=== PATIENT | male | born 1965 | race Caucasian/White ===

== ENCOUNTER 2016-09-08 12:13 | Emergency (ER) | payer MEDICAID ==
--- NOTE | 2016-09-08 12:39 | ER Document Report ---
ED Medical Screen (RME) - General Stated Complaint: WEAKNESS/BODY ACHES Notes: 51 yo male with hx/o laryngeal Cancer, in remission since Novem. c/o weakness , chills, choryza x 1 day. + cough, no n/v/d. lungs CTA, Sat 98% TRAVEL OUTSIDE OF THE [place] IN LAST 30 DAYS: No - Related Data Allergies/Adverse Reactions: codeine Allergy (Verified 02/17/16 16:52) Past Medical History - Immunizations Hx Diphtheria, Pertussis, Tetanus Vaccination: - unk Physical Exam - Vital signs Vitals: Temp Pulse Resp BP Pulse Ox 99.4 F 83 16 114/65 98 09/08/16 12:31 09/08/16 12:31 09/08/16 12:31 09/08/16 12:31 09/08/16 12:31 Course - Vital Signs Vital signs: Temp Pulse Resp BP Pulse Ox 99.4 F 83 16 114/65 98 09/08/16 12:31 09/08/16 12:31 09/08/16 12:31 09/08/16 12:31 09/08/16 12:31
[2016-09-08 13:02] LABS: HEMATOCRIT 41.4 % (37.9-51.0); HEMOGLOBIN 14.5 g/dL (13.5-17.0); HGB HCT DIFFERENCE 2.1; MEAN CORPUSCULAR HEMOGLOBIN 34.1 pg (27.0-33.4); MEAN CORPUSCULAR VOLUME 97 fl (80-97); RED BLOOD COUNT 4.26 10^6/uL (4.35-5.55); RED CELL DISTRIBUTION WIDTH 12.2 % (11.5-14.0); WHITE BLOOD COUNT 11.6 10^3/uL (4.0-10.5)
[2016-09-08 13:21] LABS: BAND NEUTROPHILS % (MANUAL) 1 % (3-5); BASOPHILS % (MANUAL) 0 % (0-2); EOSINOPHILS % (MANUAL) 0 % (0-6); LYMPHOCYTES % (MANUAL) 1 % (13-45); TOTAL CELLS COUNTED 100
[2016-09-08 13:22] LABS: RBC MORPHOLOGY COMMENT NORMO-CYTIC/CHROMIC; TOXIC GRANULATION SLIGHT; TOXIC VACUOLATION PRESENT
[2016-09-08 14:16] LABS: ALANINE AMINOTRANSFERASE 46 U/L (21-72); ALBUMIN 4.5 g/dL (3.5-5.0); ALKALINE PHOSPHATASE 77 U/L (38-126); ANION GAP 9 (5-19); ASPARTATE AMINO TRANSFERASE 39 U/L (17-59); BILIRUBIN,TOTAL 1.1 mg/dL (0.2-1.3); BLOOD UREA NITROGEN 15 mg/dL (7-20); CALCIUM 10.2 mg/dL (8.4-10.2); CARBON DIOXIDE 28 mmol/L (22-30); CHLORIDE 99 mmol/L (98-107); CREATININE RESULT 0.86 mg/dL (0.52-1.25); GLUCOSE 99 mg/dL (75-110); POTASSIUM 4.4 mmol/L (3.6-5.0); SODIUM 136.1 mmol/L (137-145); TOTAL PROTEIN 7.1 g/dL (6.3-8.2)
--- NOTE | 2016-09-08 14:39 | ER Document Report ---
ED Respiratory Problem - General Chief Complaint: Weakness Stated Complaint: WEAKNESS/BODY ACHES Time seen by provider: 14:34 Mode of Arrival: Ambulatory Information source: Patient Notes: 51-year-old male presents to ED for cough and fever that started yesterday. Patient denies any nausea vomiting or diarrhea. Patient has a history of laryngeal cancer which has been in remission since May he did have biopsies with 35 radiation treatments and 3 chemotherapy treatments which were completed in May and has been in remission since May. He states he did have a CT of the chest on Tuesday that showed some nodules on his lung but they were going to reevaluate those in 4 months. This patient does continue to smoke a half-pack a day drink daily and smoke pot. TRAVEL OUTSIDE OF THE [place] IN LAST 30 DAYS: No - HPI Patient complains to provider of: Cough Onset: Yesterday Duration: Continuous Initiating Event: URI Quality of pain: Achy Severity: Moderate Pain Level: 3 Context: Smoker, Other - History of laryngeal cancer with nodules in the lungs continues to smoke drink and smoked pot Short of Breath: Mild Cough: Nonproductive Sputum amount: None Associated symptoms: Chills, Cough, Fever Similar symptoms previously: Yes Recently seen / treated by doctor: Yes - Related Data Allergies/Adverse Reactions: codeine Allergy (Verified 09/08/16 12:39) Past Medical History - General Information source: Patient - Social History Smoking Status: Current Every Day Smoker Cigarette use (# per day): Yes - half a pack a day Chew tobacco use (# tins/day): No Smoking Education Provided: Yes - about 2 minutes Frequency of alcohol use: Heavy - Daily Drug Abuse: Marijuana Occupation: [employer] Lives with: Family Family History: CAD, CVA, DM, Hyperlipidemia, Hypertension, Malignancy, Thyroid Disfunction Patient has suicidal ideation: No Patient has homicidal ideation: No - Past Medical History Cardiac Medical History: Reports: None Pulmonary Medical History: Reports: None EENT Medical History: Reports: None Neurological Medical History: Reports: None Endocrine Medical History: Reports: None Renal/ Medical History: Reports: None Malignancy Medical History: Reports Other - Laryngeal cancer GI Medical History: Reports: None Musculoskeltal Medical History: Reports None Skin Medical History: Reports None Psychiatric Medical History: Reports: None Traumatic Medical History: Reports: None Infectious Medical History: Reports: None Past Surgical History: Reports: Hx Oral Surgery - [place] teeth, Other - Throat biopsy - Immunizations Hx Diphtheria, Pertussis, Tetanus Vaccination: - unk Review of Systems - Review of Systems Constitutional: Fever, Recent illness EENT: Nose discharge Cardiovascular: No symptoms reported Respiratory: Cough Gastrointestinal: No symptoms reported Genitourinary: No symptoms reported Male Genitourinary: No symptoms reported Musculoskeletal: No symptoms reported Skin: No symptoms reported Hematologic/Lymphatic: No symptoms reported Neurological/Psychological: No symptoms reported Physical Exam - Vital signs Vitals: Temp Pulse Resp BP Pulse Ox 99.4 F 83 16 114/65 98 09/08/16 12:31 09/08/16 12:31 09/08/16 12:31 09/08/16 12:31 09/08/16 12:31 Interpretation: Normal - General General appearance: Appears well, Alert - HEENT Head: Normocephalic, Atraumatic Eyes: Normal Pupils: PERRL Ears: Normal External canal: Normal Tympanic membrane: Normal Nasal: Purulent discharge, Swelling Pharynx: Normal Neck: Normal - Respiratory Respiratory status: No respiratory distress Chest status: Nontender Breath sounds: Normal Chest palpation: Normal - Cardiovascular Rhythm: Regular Heart sounds: Normal auscultation Murmur: No - Abdominal Inspection: Normal Distension: No distension Bowel sounds: Normal Tenderness: Nontender Organomegaly: No organomegaly - Back Back: Normal, Nontender - Extremities General upper extremity: Normal inspection, Nontender, Normal color, Normal ROM , Normal temperature General lower extremity: Normal inspection, Nontender, Normal color, Normal ROM , Normal temperature, Normal weight bearing. No: Rob's sign - Neurological Neuro grossly intact: Yes Cognition: Normal Orientation: AAOx4 [place] Coma Scale Eye Opening: Spontaneous [place] Coma Scale Verbal: Oriented [place] Coma Scale Motor: Obeys Commands [place]arte Coma Scale Total: 15 Speech: Normal Motor strength normal: LUE, RUE, LLE, RLE Sensory: Normal - Psychological Associated symptoms: Normal affect, Normal mood - Skin Skin Temperature: Warm Skin Moisture: Dry Skin Color: Normal Course - Re-evaluation Re-evalutation: 09/08/16 15:47 Discussed x-ray with patient and written report given to patient to follow-up with his primary doctor. Patient has a developing pneumonia we'll treat with azithromycin. - Vital Signs Vital signs: Temp Pulse Resp BP Pulse Ox 97.9 F 64 20 134/73 H 97 03/08/17 16:26 09/08/16 16:26 09/08/16 16:26 09/08/16 16:26 09/08/16 16:26 - Laboratory Result Diagrams: 09/08/16 12:45 09/08/16 12:45 Laboratory results interpreted by me: 09/08/16 09/08/16 12:45 12:45 WBC 11.6 H RBC 4.26 L MCH 34.1 H Plt Count 114 L Seg Neuts % (Manual) 89 H Band Neutrophils % 1 L Lymphocytes % (Manual) 1 L Abs Neuts (Manual) 10.4 H Sodium 136.1 L - Diagnostic Test Radiology reviewed: Image reviewed, Reports reviewed Discharge - Discharge Clinical Impression: Right upper lobe pneumonia Qualifiers: Pneumonia type: due to unspecified organism Qualified Code(s): J18.1 - Lobar pneumonia, unspecified organism Condition: Stable Disposition: HOME, SELF-CARE Additional Instructions: PNEUMONIA: Your examination indicates that you have pneumonia. This is an infection of the lung tissue, usually caused by bacteria or a virus. Symptoms include cough, fever, shaking chills, chest pain, shortness of breath, and coughing up bloody sputum. Treatment for bacterial pneumonia includes rest, antibiotics for 10 to 14 days, increasing your clear liquid intake, a cool mist humidifier at your bedside, and fever medication. Often, a repeat chest X-ray is performed in a few weeks--even if you feel better--to ascertain whether the infection has completely resolved and no underlying lung problem is present. You should call the physician if you develop persistent vomiting, high fever that does not respond to fever medication, increasing shortness of breath , confusion, or lethargy. Also, failure to improve within two to three days is an indication for re-examination. AZITHROMYCIN: Azithromycin (Zithromax) is a broad spectrum antibiotic in the same class as erythromycin. It can treat a variety of bacterial infections, but is most frequently used for respiratory infections. Azithromycin is extremely long-lasting. It accumulates in body tissues and continues to kill bacteria for many days. In order to improve absorption, Azithromycin should be taken at least one hour before or two hours after a meal. It does not have the same strong tendency to upset the stomach as erythromycin and is usually very well tolerated. Patients who have had a rash or other true allergic reactions to erythromycin should not take this medication. Call if you develop gastrointestinal distress, severe diarrhea, rash, hives, itching, or shortness of breath. FOLLOW-UP CARE: If you have been referred to a physician for follow-up care, call the physician s office for an appointment as you were instructed or within the next two days. If you experience worsening or a significant change in your symptoms, notify the physician immediately or return to the Emergency Department at any time for re-evaluation. Prescriptions: Azithromycin [Zithromax 250 mg Tablet] 250 mg PO ASDIR PRN #6 tablet PRN Reason: Forms: Smoking Cessation Education, Return to Work Referrals: JORGE DE LUNA MD [Primary Care Provider] - Follow up as needed
[2016-09-08] MEDS ORDERED: AZITHROMYCIN 250 MG TABLET PO ONE (15:50)
[2016-09-08 16:27] VITALS: BP 134/73
== END 2016-09-08 16:26 | disposition home or self-care (01) ==
LOC: ER 12:13
DX: J18.1 Lobar pneumonia, unspecified organism (principal); R53.1 Weakness; R52 Pain, unspecified; R05 Cough; R50.9 Fever, unspecified; F17.210 Nicotine dependence, cigarettes, uncomplicated
CPT/HCPCS: 99285; 36415; 85025; 80053; 87804; 71020; Q0144

== ENCOUNTER → 2016-10-28 | Outpatient (CLI) | payer MEDICAID | LOC: OD 12:33 | PROVIDERS: ATTEND Nurse Practitioner Acute Care | DX: R05 Cough (principal) | CPT/HCPCS: 71020 ==